=== PATIENT | male | born 1980 | race Caucasian/White ===

== ENCOUNTER 2018-07-12 12:39 | Emergency (ER) | payer OTHER ==
[~2018-07-12] VITALS: Ht 172.7 cm; Wt 111.1 kg
--- OUTSIDE RECORDS SUMMARY | ~2018-07-12 | XMS | Clinical Summary ---
Demographics + + + | Address | [address] | | | [place] [address] | + + + | Home Phone | | + + + | Preferred Language | Unknown | + + + | Marital Status | | + + + | Voodoo Affiliation | 1013 | + + + | Race | Unknown | + + + | Ethnic Group | Unknown | + + + Author + + + | Author | [facility] | | | and [place] | + + + | Organization | [facility] | | | and [place] | + + + | Address | Unknown | + + + | Phone | Unavailable | + + + Support + + + + + | Name | Relationship | Address | Phone | + + + + + | None To List,Per Pt | ECON | 11 21 2015 | Unavailable | | | | N, | | + + + + + | Georgette Espino | ECON | [address] | | | | | [place] | | | | | [address] | | + + + + + Care Team Providers + +------+ + | Care Engine Dynamometer Tester Name | Role | Phone | + +------+ + | Hayden Ennis MD | PP | Unavailable | + +------+ + Allergies No Known Allergies Current Medications + + +-------+---------+------+------+-------+ | Prescription | Sig. | Disp. | Refills | Star | End | Statu | | | | | | t | Date | s | | | | | | Date | | | + + +-------+---------+------+------+-------+ | metoprolol | Take 50 mg by mouth | | | 09/2 | | Activ | | tartrate (LOPRESSOR) | 2 times daily. | | | 4/20 | | e | | 50 mg tablet | | | | 12 | | | + + +-------+---------+------+------+-------+ | omeprazole | Take 40 mg by mouth | | | 09/2 | | Activ | | (PRILOSEC) 40 MG | nightly. | | | 420 | | e | | capsule | | | | 12 | | | + + +-------+---------+------+------+-------+ | lisinopril | Take 10 mg by mouth | | | 09/2 | | Activ | | (PRINIVIL, ZESTRIL) | Daily. | | | 4/20 | | e | | 10 mg tablet | | | | 12 | | | + + +-------+---------+------+------+-------+ Active Problems + + + | Problem | Noted Date | + + + | GERD | | + + + | MIGRAINE HEADACHE | | + + + | HYPERTENSION, BENIGN ESSENTIAL | | + + + | FATTY LIVER DISEASE | | + + + Social History + +-------+ +--------+------+ | Tobacco Use | Types | Packs/Day | Years | Date | | | | | Used | | + +-------+ +--------+------+ | Never Smoker | | | | | + +-------+ +--------+------+ + +---+---+---+ | Smokeless Tobacco: | | | | | Never Used | | | | + +---+---+---+ + + +---------+ + | Alcohol Use | Drinks/We | oz/Week | Comments | | | ek | | | + + +---------+ + | No | | | | + + +---------+ + + + + | Sex Assigned at | Date Recorded | | | | + + + | Not on file | | + + + Last Filed Vital Signs + + + + | Vital Sign | Reading | Time Taken | + + + + | Blood Pressure | 118/72 | 08/09/2012 1402 PDT | + + + + | Pulse | 68 | 08/09/2012 140 PDT | + + + + | Temperature | - | - | + + + + | Respiratory Rate | - | - | + + + + | Oxygen Saturation | - | - | + + + + | Inhaled Oxygen | - | - | | Concentration | | | + + + + | Weight | 105.2 kg (232 lb) | 08/09/20121401 PDT | + + + + | Height | 172.7 cm (5' 8") | 08/09/20121401 PDT | + + + + | Body Mass Index | 35.28 | 08/09/20121401 PDT | + + + + Plan of Treatment + + + + + | Health Maintenance | Due Date | Last Done | Comments | + + + + + | Vaccine: | | | | | Dtap/Tdap/Td (1 - | 7 | | | | Tdap) | | | | + + + + + | Vaccine: Influenza | | | | | (#1) | 8 | | | + + + + + Results Not on filefrom Last 3 Months Insurance + +--------+ +------+ +---------+ | Payer | Benefi | Subscriber | Type | Phone | Address | | | t Plan | ID | | | | | | / | | | | | | | Group | | | | | + +--------+ +------+ +---------+ | [employer] | PHP | [id number] | PPO | +- | | | PLAN | [place] | | | [id number] | | | | PROV | | | | | | | CHOICE | | | | | + +--------+ +------+ +---------+ | [employer] | PHP | [id number] | PPO | +- | | | PLAN | [place] | | | [id number] | | | | [place] | | | | | | | [place] | | | | | + +--------+ +------+ +---------+ + +--------+ +--------+ + + | Guarantor Name | Accoun | Relation to | Date | Phone | Billing Address | | | t Type | Patient | of | | | | | | | | | | + +--------+ +--------+ + + | HERNANDEZ ESPINO | Person | Self | [birth year] | Home: | [address] | | | al/Fam | | 1980 | [phone] | [place] [address] | | | hair | | | [phone] | | + +--------+ +--------+ + +
--- OUTSIDE RECORDS SUMMARY | ~2018-07-12 | XMS | Clinical Summary ---
Demographics + + + | Address | [address] | | | [place] [address] | + + + | Home Phone | | + + + | Preferred Language | Unknown | + + + | Marital Status | | + + + | Alevism Affiliation | 1013 | + + + | Race | Unknown | + + + | Ethnic Group | Unknown | + + + Author + + + | Author | [facility] | + + + | Organization | [facility] | + + + | Address | Unknown | + + + | Phone | Unavailable | + + + Support + + + + + | Name | Relationship | Address | Phone | + + + + + | Georgette Espino | ECON | [address] | | | | | [place] | | | | | [address] | | + + + + + | Abbie Espino | ECON | Unknown | | + + + + + Care Team Providers + +------+ + | Care Database Marketing Analyst Name | Role | Phone | + +------+ + | Hayden Ennis MD | PP | Unavailable | + +------+ + Allergies Not on File Current Medications Not on file Active Problems Not on file Social History + +-------+ +--------+------+ | Tobacco Use | Types | Packs/Day | Years | Date | | | | | Used | | + +-------+ +--------+------+ | Never Assessed | | | | | + +-------+ +--------+------+ + + + | Sex Assigned at | Date Recorded | | | | + + + | Not on file | | + + + Plan of Treatment Not on file Results Not on filefrom Last 3 Months Insurance + +--------+ +------+-------+---------+ | Payer | Benefi | Subscriber | Type | Phone | Address | | | t Plan | ID | | | | | | / | | | | | | | Group | | | | | + +--------+ +------+-------+---------+ | [employer] | FC-NET | [id number] | | | | | | WORK | | | | | + +--------+ +------+-------+---------+ + +--------+ +--------+ + + | Guarantor Name | Accoun | Relation to | Date | Phone | Billing Address | | | t Type | Patient | of | | | | | | | | | | + +--------+ +--------+ + + | HERNANDEZ ESPINO | Person | Self | [birth year] | Home: | [address] | | | al/Fam | | 1980 | [phone] | [place] | | | hair | | | [phone] | [phone] | + +--------+ +--------+ + +"
--- OUTSIDE RECORDS SUMMARY | ~2018-07-12 | XMS | Clinical Summary ---
Demographics + + + | Address | [address] | | | [place] [address] | + + + | Home Phone | | + + + | Preferred Language | Unknown | + + + | Marital Status | | + + + | Jain Affiliation | 1013 | + + + | Race | Unknown | + + + | Ethnic Group | Unknown | + + + Author + + + | Author | [facility] | | | and [place] | + + + | Organization | [facility] | | | and [place] | [...] [place] | | | | | [address] | | + + + + + Care Team Providers + +------+ + | Care Nurse Midwife Name | Role | Phone | + +------+ + | Hayedn Ennis MD | PP | Unavailable | [...] +---------+ | [employer] | PHP | [id number] | PPO | +- | | | PLAN | [place] | | | 4445 | | | | PROV | | | | | | | CHOICE | | | | | + +--------+ +------+ +---------+ | [employer] | PHP | [id number] | PPO | +- | | | [...] | | al/Fam | | 1980 | [phone] | [place] [address] | | | hair | | | [phone] | | + +--------+ +--------+ + +
--- OUTSIDE RECORDS SUMMARY | ~2018-07-12 | XMS | Clinical Summary ---
Demographics + + + | Address | [address] | | | [place] [address] | + + + | Home Phone | | + + + | Preferred Language | Unknown | + + + | Marital Status | | + + + | Congregation Affiliation | 1013 | + + + | Race | Unknown | + + + | Ethnic Group | Unknown | + + + Author + + + | Author | [facility] | + + + | Organization | [facility] | + + + | Address | Unknown | + + + | Phone | Unavailable | + + + Support + + + + + | Name | Relationship | Address | Phone | + + + + + | Georgette Espino | ECON | [address] | | | | | [place] | | | | | [address] | | + + + + + | Abbie Espino | ECON | Unknown | | + + + + + Care Team Providers + +------+ + | Care First Crusher Name | Role | Phone | + [...] +------+-------+---------+ | [employer] | FC-NET | [id number] | | | | | | WORK [...] Self | [birth year] | Home: | [address] | | | al/Fam | | 1980 | [phone] | [place] | | | hair | | | [phone] | [phone] | + +--------+ +--------+ + +"
[2018-07-12] MEDS ORDERED: OMEPRAZOLE40 MG PO (13:10)
[2018-07-12] MEDS ORDERED: LISINOPRIL10 MG PO (13:10)
[2018-07-12] MEDS ORDERED: METOPROLOL TART50 MG PO (13:10)
[2018-07-12] MEDS ORDERED: ZOLPIDEM TARTRAT5 MG PO (13:10)
[2018-07-12] MEDS ORDERED: ONDANSETRON ODT8 MG PO (14:55)
== END 2018-07-12 15:07 | disposition home or self-care (01) ==
LOC: ED 12:39
DX: K52.9 Noninfective gastroenteritis and colitis, unspecified (principal); Z79.899 Other long term (current) drug therapy
CPT/HCPCS: 74177; 80053; 81001; 82150; 83690; 85025; 87502; 96361; 96374; 96375; 99283; J2405; J2550; J7030; Q9967

== ENCOUNTER 2022-05-06 14:14 | Emergency (ER) | payer OTHER ==
[~2022-05-06] VITALS: Ht 172.7 cm; Wt 113.4 kg
[~2022-05-06 14:14] MED LIST: LISINOPRIL10 MG PO; METOPROLOL TART50 MG PO; OMEPRAZOLE40 MG PO; ONDANSETRON ODT8 MG PO; ZOLPIDEM TARTRAT5 MG PO
[2022-05-06] MEDS ORDERED: AMLODIPINE BES2.5 MG PO (15:04)
[2022-05-06] MEDS ORDERED: BRILINTA90 MG PO (15:04)
[2022-05-06] MEDS ORDERED: LOSARTAN POTASS50 MG PO (15:05)
[2022-05-06] MEDS ORDERED: CARVEDILOL6.25 MG PO (15:05)
[2022-05-06] MEDS ORDERED: ATORVASTATIN CA40 MG PO (15:05)
--- NOTE | 2022-05-07 08:54 | EKG ---
[facility] [address] [facility] [place], [place] [address] Signed Normal sinus rhythm Possible Inferior infarct , age undetermined Abnormal ECG No previous ECGs available Confirmed by LINDSAY GARCIA MD ([id number]) on 05/07/2022 8:54:41 AM Electronically Signed By: LINDSAY GARCIA MD 05/07/22 0854 PATIENT NAME: SREE ESPINO Electrocardiogram DATE OF : 76 PHYSICIAN: LINDSAY GARCIA MD REPORT #: [id number] REPORT IS CONFIDENTIAL AND NOT TO BE RELEASED WITHOUT AUTHORIZATION
== END 2022-05-06 18:05 | disposition home or self-care (01) ==
LOC: ED 14:14
DX: K21.9 Gastro-esophageal reflux disease without esophagitis (principal); I10 Essential (primary) hypertension; E11.9 Type 2 diabetes mellitus without complications; G47.00 Insomnia, unspecified; Z79.899 Other long term (current) drug therapy
CPT/HCPCS: 36415; 71045; 80053; 83735; 84484; 85025; 85060; 93005; 93010; 99285-25

== ENCOUNTER 2022-06-12 00:44 | Emergency (ER) | payer OTHER ==
[~2022-06-12] VITALS: Ht 172.7 cm; Wt 110.0 kg
[~2022-06-12 00:44] MED LIST changes: +AMLODIPINE BES2.5 MG PO; +ATORVASTATIN CA40 MG PO; +BRILINTA90 MG PO; +CARVEDILOL6.25 MG PO; +LOSARTAN POTASS50 MG PO
[2022-06-12] MEDS ORDERED: METFORMIN HCL500 M1 PO (01:05)
[2022-06-12] MEDS ORDERED: SERTRALINE HCL50 MG PO (01:05)
[2022-06-12] MEDS ORDERED: NITROGLYCERIN0.4 MG SL (01:05)
[2022-06-12] MEDS ORDERED: CYCLOBENZAPRINE10 MG PO (03:01)
--- NOTE | 2022-06-12 16:51 | EKG ---
[facility] [address] [facility] [place] [address] Signed Normal sinus rhythm Normal ECG When compared with ECG of 06-MAY-2022 14:16, No significant change was found Confirmed by ROXANNE PERDOMO MD ([id number]) on 06/12/2022 4:51:08 PM Electronically Signed By: ROXANNE PERDOMO MD 06/12/22 165 PATIENT NAME: SREE ESPINO AMILCAR Electrocardiogram DATE OF : [birth year] PHYSICIAN: ROXANNE PERDOMO MD REPORT #: [id number] REPORT IS CONFIDENTIAL AND NOT TO BE RELEASED WITHOUT AUTHORIZATION
== END 2022-06-12 03:16 | disposition home or self-care (01) ==
LOC: ED 00:44
DX: R07.89 Other chest pain (principal); I10 Essential (primary) hypertension; E11.9 Type 2 diabetes mellitus without complications; I25.2 Old myocardial infarction; Z79.84 Long term (current) use of oral hypoglycemic drugs; Z79.899 Other long term (current) drug therapy
CPT/HCPCS: 36415; 71045; 80053; 83735; 83880; 84484; 85025; 87502; 93005; 93010; 99285-25; U0003